=== PATIENT | male | born 1965 | race Caucasian/White ===

== ENCOUNTER 2023-02-22 17:57 | Inpatient (IN) ==
[2023-02-22] MEDS ORDERED: NovoLIN R (or HumuLIN R) SUBCUT PRN (20:00)
[2023-02-22 20:07] LABS: BASOPHILS # (AUTO) 0.1 X10^3/uL (0.0-0.1); BASOPHILS % (AUTO) 1.2 % (0.2-1.0); EOSINOPHILS % (AUTO) 0.4 % (0.9-2.9); HEMATOCRIT 44.2 % (42.0-54.0); HEMOGLOBIN 15.1 g/dL (13.5-18.0); LYMPHOCYTES # (AUTO) 1.9 X10^3/uL (1.3-2.9); LYMPHOCYTES % (AUTO) 20.4 % (21.0-51.0); MEAN CORPUSCULAR HEMOGLOBIN 28.8 pg (27.0-34.0); MEAN CORPUSCULAR HGB CONC 34.3 g/dL (33.0-35.0); MEAN PLATELET VOLUME 8.2 fL (7.4-11.0); MONOCYTES # (AUTO) 1.1 x10^3/uL (0.3-0.8); MONOCYTES % (AUTO) 11.3 % (0.0-13.0); NEUTROPHILS # (AUTO) 6.2 x10^3/uL (2.2-4.8); NEUTROPHILS % (AUTO) 66.7 % (42.0-75.0); PLATELET COUNT 216 X10^3/uL (150.0-450.0); RED BLOOD COUNT 5.26 X10^6/uL (4.7-6.0); RED CELL DISTRIBUTION WIDTH 13.2 % (11.6-16.5); WHITE BLOOD COUNT 9.4 X10^3/uL (3.6-10.0)
[2023-02-22 20:27] LABS: BLOOD UREA NITROGEN 21 mg/dL (7-18); CALCIUM 9.1 mg/dL (8.5-10.1); CARBON DIOXIDE 22.8 mmol/L (21-32); CHLORIDE 96 mmol/L (98-107); COR NA(FOR HYPERGLY) 133 mmol/L (136-145); CREATININE 0.86 mg/dL (0.70-1.30); GLUCOSE 119 mg/dL (65-99); POTASSIUM 4.1 mmol/L (3.5-5.1); SODIUM 133 mmol/L (136-145); eGFR NON BLACK RACES > 60 (>60)
[2023-02-22 20:39] LABS: ALANINE AMINOTRANSFERASE 29 Units/L (12-78); ALBUMIN 3.4 g/dL (3.4-5.0); ALKALINE PHOSPHATASE 85 Units/L (46-116); ASPARTATE AMINO TRANSFERASE 21 Units/L (15-37); TOTAL PROTEIN 7.2 g/dL (6.4-8.2)
[2023-02-22] MEDS: SNACK - Diabetic Appropriate PO SCH (21:00)
[2023-02-22 21:19] VITALS: BMI 33.9
[2023-02-22] MEDS: LR 1,000 ML IV 1,000 ML IV SCH (21:26)
[2023-02-22] MEDS: ASPIRIN PO SCH (21:55)
[2023-02-22] MEDS: LOPRESSOR TAB 25 MG PO SCH (21:55)
[2023-02-22] MEDS: ZOSYN VIAL 3.375 GRAMS 3.375 G in NS 100 ML IV 100 ML IV SCH (22:06)
[2023-02-23] MEDS: LR 1,000 ML IV 1,000 ML IV SCH ×4 (04:18→20:52)
[2023-02-23] MEDS: ZOSYN VIAL 3.375 GRAMS 3.375 G in NS 100 ML IV 100 ML IV SCH ×3 (05:28→21:06)
[2023-02-23 05:45] LABS: BLOOD UREA NITROGEN 18 mg/dL (7-18); CARBON DIOXIDE 27.5 mmol/L (21-32); CHLORIDE 100 mmol/L (98-107); COR NA(FOR HYPERGLY) 139 mmol/L (136-145); CREATININE 0.92 mg/dL (0.70-1.30); GLUCOSE 128 mg/dL (65-99); POTASSIUM 4.1 mmol/L (3.5-5.1); SODIUM 138 mmol/L (136-145); eGFR NON BLACK RACES > 60 (>60)
[2023-02-23 05:49] LABS: BASOPHILS # (AUTO) 0.1 X10^3/uL (0.0-0.1); BASOPHILS % (AUTO) 1.1 % (0.2-1.0); EOSINOPHILS # (AUTO) 0.2 x10^3/uL (0.0-0.2); EOSINOPHILS % (AUTO) 1.9 % (0.9-2.9); HEMATOCRIT 42.3 % (42.0-54.0); HEMOGLOBIN 14.8 g/dL (13.5-18.0); LYMPHOCYTES # (AUTO) 2.4 X10^3/uL (1.3-2.9); LYMPHOCYTES % (AUTO) 30.4 % (21.0-51.0); MEAN CORPUSCULAR HEMOGLOBIN 29.3 pg (27.0-34.0); MEAN CORPUSCULAR VOLUME 83.8 fL (80.0-100.0); MEAN PLATELET VOLUME 8.2 fL (7.4-11.0); MONOCYTES # (AUTO) 1.3 x10^3/uL (0.3-0.8); MONOCYTES % (AUTO) 16.4 % (0.0-13.0); NEUTROPHILS # (AUTO) 3.9 x10^3/uL (2.2-4.8); NEUTROPHILS % (AUTO) 50.2 % (42.0-75.0); PLATELET COUNT 200 X10^3/uL (150.0-450.0); RED BLOOD COUNT 5.05 X10^6/uL (4.7-6.0); RED CELL DISTRIBUTION WIDTH 13.2 % (11.6-16.5); WHITE BLOOD COUNT 7.8 X10^3/uL (3.6-10.0)
[2023-02-23 06:11] LABS: ALANINE AMINOTRANSFERASE 22 Units/L (12-78); ALKALINE PHOSPHATASE 79 Units/L (46-116); ASPARTATE AMINO TRANSFERASE 18 Units/L (15-37); COR CA(FOR HYPOALB) 9.8 mg/dL (8.5-10.1); TOTAL PROTEIN 6.7 g/dL (6.4-8.2)
--- NOTE | 2023-02-23 07:33 | NOTE.SOAP ---
Soap Note Note for Day of Date of Exam: 02/23/23 Subjective Data Subjective Data: 57 year old male seen at bedside with a chief complain of an infected 2nd digit on his right foot. Patient state that he had a callus there for quite some time and denies feeling any pain with his neuropathy. He mentioned that he got it wet and developped a small infection, then got it wet again. Patient states this is the first time this has happened and has been treating it conservatively. Unfortunately the infection got worse and was seen by Dr. Chaudhary who sent him to the emergency room for further workup, antibiotics and surgery. Patient denies any constitutional symptoms at this time including nausea, vomiting, fever, chills or sob. Objective Data Objective Data: Derm: Boggy 2nd toe noted to the left foot with an underlying wound at the tuft of the toe. Erythema around the digit and mild purulence. No other open wounds noted throughout both feet Vasc: Palpable DP 1/4 and PT 2/4 to bilteral feet. Edema noted to left foot Neuro: Gross epicritic and protective sensation is diminished Musc: Contracted digit to the left foot. Assessment Assessment: Gas Gangrene, Left foot Plan Plan: Patient seen at bedside. Discussed conservative vs surgical options for the patient and due to the nature of this infection it is recommended that the patient undergo surgery. Explained to patient that the toe will be amputated and the site will be left opened to drain any additional infection. Patient will be taken back to the operating room when the infection improves. Patient will be kept on IV antibiotics throughout his stay in the hospital. Patient confirmed NPO status since 10pm last night. We will be taking him to the operating room today for an open toe amputation to the left foot. Arterial studies ordered
[2023-02-23] MEDS ORDERED: NS 1,000 ML IV 1,000 ML ONE (08:42)
[2023-02-23] MEDS ORDERED: NS 100 ML IV 100 ML ONE (08:42)
[2023-02-23] MEDS ORDERED: ANCEF VIAL 1 GRAM ONE (08:42)
--- NOTE | 2023-02-23 08:56 | EKG ---
Test Reason : pre-op Blood Pressure : */* mmHG Vent. Rate : 77 BPM Atrial Rate : 77 BPM P-R Int : 166 ms QRS Dur : 82 ms QT Int : 366 ms P-R-T Axes : * 174 211 degrees QTc Int : 414 ms Suspect arm lead reversal, interpretation assumes no reversal Normal sinus rhythm Low voltage QRS Anterolateral infarct , age undetermined Abnormal ECG No previous ECGs available Confirmed by Marquis Malin ([id number]) on 02/23/2023 11:13:39 AM Referred By: Confirmed By: Marquis Malin
[2023-02-23] MEDS ORDERED: MARCAINE 0.25% INJ ONE (09:14)
--- NOTE | 2023-02-23 09:19 | RAD ---
HISTORYPRE OP TOE AMPUTATION Relevant Clinical InformationSTUDYCHEST, 1 VIEWCOMPARISONNone availableFINDINGSThe trachea is midline. Mild cardiomegaly. Status post sternotomy. No dominant alveolar radiopacities.There is poor inspiratory effort with elevation of the diaphragm,no evidence of pneumothorax or pleural effusions,no pulmonary edema. Mild radiopacities at the bases probably atelectasis.IMPRESSIONForty inspiratory effort with elevation of the diaphragm. Mild atelectasis at the bases.Electronically signed by: Wanda Delgado (Feb 23, 2023 09:18:12)
[2023-02-23] MEDS ORDERED: FENTANYL VIAL INJ 100 mcg ONE (09:52)
[2023-02-23] MEDS ORDERED: VERSED ONE (09:52)
[2023-02-23] MEDS ORDERED: PEPCID 20 MG VIAL ONE (09:56)
[2023-02-23] MEDS ORDERED: OFIRMEV IV 1000 MG VIAL 1,000 MG/100 ML VIAL IV ONE (09:56)
[2023-02-23] MEDS ORDERED: ZOFRAN INJ 4 MG VIAL ONE (09:56)
[2023-02-23] MEDS ORDERED: BETADINE SOLN ONE (10:05)
[2023-02-23] MEDS ORDERED: XYLOCAINE 2 % (PLAIN) ONE (10:18)
--- NOTE | 2023-02-23 10:18 | DR.OPNOTE ---
OP NOTE Pre-Op Diagnosis: Gas Gangrene, Left foot Post-Op Diagnosis: Gas gangrene, left foot Procedure Date Date Of Procedure: 02/23/23 Procedure: Open 2nd digit amputation Anesthesia Comment: MAC with local block Findings: See dictation Specimen/Pathology: 2nd toe sent for pathology and cultures for micro EBL: 10cc Drains/Tubes Placed: None Hardware: None Cultures: x2 from left foot Complications:: None Needle/Sponge Count:: Counted Disposition/Condition: Pt. tolerated procedure without difficulty. Extubated in the OR and taken to PACU in stable condition.
[2023-02-23] MEDS: LOPRESSOR TAB 25 MG PO SCH ×2 (10:47→20:51)
[2023-02-23] MEDS: GLUCOPHAGE PO SCH ×2 (10:48→17:14)
[2023-02-23] MEDS: ZESTRIL TAB 5 MG PO SCH (10:48)
[2023-02-23] MEDS: LIPITOR TAB 80 MG PO SCH (10:48)
[2023-02-23] MEDS: FARXIGA PO SCH (10:48)
--- NOTE | 2023-02-23 16:24 | VAS ---
HISTORYPAD, S/P TOE AMPUTATION LEFT FOOT THIS AMSTUDYLOWER EXT ARTERIALCOMPARISONNoneTECHNIQUEMultiple white scale and color flow Doppler images of the [right and left] lower extremity arterial system were obtained. Interrogation of the common femoral artery, superficial femoral artery, popliteal artery, and tibial arteries was performed.FINDINGSOn the right biphasic waveforms were seen the from the common femoral artery to the anterior tibial artery with peak systolic velocities ranging from 50 cm/s to 101 cm/second.On the left no flow was seen in the common femoral artery or the proximal superficial femoral artery with monophasic waveforms seen in the mid/distal SFA through anterior tibial artery. Peak systolic velocities ranged from 32 cm/second to 182 cm/second. The left foot was not examined due to external dressings.IMPRESSIONAbnormal bilateral arterial waveforms with no flow seen in the proximal left lower extremity. CT angiogram or conventional angiogram may be helpful.Electronically signed by: Luis Angel Welch (Feb 23, 2023 16:13:30)
[2023-02-23] MEDS: SNACK - Diabetic Appropriate PO SCH (20:51)
[2023-02-23] MEDS: ASPIRIN PO SCH (20:51)
[2023-02-23] MEDS ORDERED: LANTUS SC SCH (21:00)
[2023-02-24] MEDS: LR 1,000 ML IV 1,000 ML IV SCH (05:18)
[2023-02-24 05:22] LABS: ALANINE AMINOTRANSFERASE 18 Units/L (12-78); ALBUMIN 2.6 g/dL (3.4-5.0); ALKALINE PHOSPHATASE 81 Units/L (46-116); ASPARTATE AMINO TRANSFERASE 22 Units/L (15-37); BLOOD UREA NITROGEN 14 mg/dL (7-18); CALCIUM 8.2 mg/dL (8.5-10.1); CARBON DIOXIDE 26.6 mmol/L (21-32); CHLORIDE 98 mmol/L (98-107); COR CA(FOR HYPOALB) 9.3 mg/dL (8.5-10.1); COR NA(FOR HYPERGLY) 133 mmol/L (136-145); CREATININE 0.82 mg/dL (0.70-1.30); GLUCOSE 158 mg/dL (65-99); SODIUM 132 mmol/L (136-145); TOTAL PROTEIN 6.2 g/dL (6.4-8.2); eGFR NON BLACK RACES > 60 (>60)
[2023-02-24 05:47] LABS: BASOPHILS # (AUTO) 0.1 X10^3/uL (0.0-0.1); EOSINOPHILS # (AUTO) 0.2 x10^3/uL (0.0-0.2); EOSINOPHILS % (AUTO) 2.6 % (0.9-2.9); HEMATOCRIT 40.9 % (42.0-54.0); HEMOGLOBIN 14.1 g/dL (13.5-18.0); LYMPHOCYTES # (AUTO) 2.1 X10^3/uL (1.3-2.9); LYMPHOCYTES % (AUTO) 22.8 % (21.0-51.0); MEAN CORPUSCULAR HGB CONC 34.5 g/dL (33.0-35.0); MEAN CORPUSCULAR VOLUME 83.9 fL (80.0-100.0); MEAN PLATELET VOLUME 7.9 fL (7.4-11.0); MONOCYTES # (AUTO) 1.2 x10^3/uL (0.3-0.8); MONOCYTES % (AUTO) 12.6 % (0.0-13.0); NEUTROPHILS # (AUTO) 5.6 x10^3/uL (2.2-4.8); PLATELET COUNT 188 X10^3/uL (150.0-450.0); RED BLOOD COUNT 4.87 X10^6/uL (4.7-6.0); RED CELL DISTRIBUTION WIDTH 13.2 % (11.6-16.5); WHITE BLOOD COUNT 9.1 X10^3/uL (3.6-10.0)
[2023-02-24] MEDS: ZOSYN VIAL 3.375 GRAMS 3.375 G in NS 100 ML IV 100 ML IV SCH ×3 (06:03→21:19)
[2023-02-24] MEDS: GLUCOPHAGE PO SCH ×2 (06:04→17:58)
--- NOTE | 2023-02-24 07:50 | NOTE.SOAP ---
Soap Note Note for Day of Date of Exam: 02/24/23 Subjective Data Subjective Data: Patient AAOx3 this morning, no acute symptoms overnight Objective Data Objective Data: Open toe amputation site with mild sanguinous drainage as expected post operatively. Edema and erythema has resolved. No malodor, purulence or erythema appreciated Assessment Assessment: Gas gangrene, Left foot S/P open 2nd digit amputation Plan Plan: Patient doing well this morning, explained plan at length with him and his . We will be monitoring daily and likely be taking the patient back to the operating room tomorrow for a delayed primary closure. Continue IV abx. Arterial ultrasound reviewed. Patient to be PWB with heel touch to the LLE in a post op shoe. NPO after midnight
[2023-02-24] MEDS ORDERED: OMNIPAQUE 350 mg/mL 100 mL BTL 100 ML ONE (08:42)
[2023-02-24] MEDS ORDERED: NS 100 ML IV 100 ML ONE ×2 (08:42→13:19)
[2023-02-24] MEDS ORDERED: OMNIPAQUE 350 mg/mL 50 mL BTL 50 ML ONE (08:42)
[2023-02-24] MEDS: FARXIGA PO SCH (08:43)
[2023-02-24] MEDS: LIPITOR TAB 80 MG PO SCH (08:43)
[2023-02-24] MEDS: ZESTRIL TAB 5 MG PO SCH (08:44)
[2023-02-24] MEDS: LOPRESSOR TAB 25 MG PO SCH ×2 (08:44→21:18)
--- NOTE | 2023-02-24 10:45 | CT ---
HISTORYevaluate for PAD, irregular doppler. Possible arterial occlusion.STUDYLOW EXT CTA W W/O CONCOMPARISONLower extremity arterial ultrasound 02/23/2023TECHNIQUEMultiple axial images of the abdomen, pelvis, and lower extremity runoff were obtained without IV contrast. Coronal and sagittal reformats were made and reviewed. Dose reduction techniques included Automated Exposure Control (AEC) and adjustment of mA and kV.FINDINGSWithout contrast: Atherosclerotic calcification is present in the coronary arteries.Vascular calcifications are present compatible with atherosclerosis.With contrast: Aorta has a normal caliber with no aneurysm, dissection, or stenosis.All 3 mesenteric vessels are patent. There is a single patent artery to each kidney. Common iliac and external iliac arteries are widely patent. Both internal iliac arteries are patent.Left lower extremity: Common femoral artery is patent. But there is a long occlusion of the femoropopliteal artery starting at the origin of the superficial femoral artery. Deep femoral artery collaterals reconstitute the popliteal artery above the knee joint surface. Popliteal artery is patent and gives rise to all 3 branches of the trifurcation vessels in the proximal calf. Dominant vessel is the posterior tibial artery. But all 3 branches extend to the foot. Peroneal artery is very small at the ankle.Right lower extremity: Common femoral artery is patent. Mild diffuse femoropopliteal artery disease is present without focal stenosis. All 3 branches are patent in the proximal calf and extend to the foot. The dominant vessel is posterior tibial artery. Peroneal artery is very tiny at the ankle.Body: No pulmonary emboli in the lower lobes. No biliary obstruction. No hydronephrosis. No bowel obstruction. No inflammation or free fluid.IMPRESSION1. Long occlusion of the left femoropopliteal artery2. Three-vessel runoff to each footElectronically signed by: Bronson Wood (Feb 24, 2023 10:43:39)
[2023-02-24] MEDS: NS 1,000 ML IV 1,000 ML IV SCH ×2 (11:52→17:59)
[2023-02-24] MEDS ORDERED: REGLAN INJ 10 MG VIAL ONE ×2 (13:09→13:26)
[2023-02-24] MEDS ORDERED: ROBINUL ONE ×2 (13:09→13:48)
[2023-02-24] MEDS ORDERED: PEPCID 20 MG VIAL ONE ×2 (13:09→13:33)
[2023-02-24] MEDS ORDERED: ZEMURON 100 MG VIAL ONE (13:09)
[2023-02-24] MEDS ORDERED: ZOFRAN INJ 4 MG VIAL ONE (13:09)
[2023-02-24] MEDS ORDERED: BRIDION ONE (13:09)
[2023-02-24] MEDS ORDERED: DIPRIVAN VIAL 20 ML ONE (13:10)
[2023-02-24] MEDS ORDERED: ANCEF VIAL 1 GRAM ONE (13:18)
[2023-02-24] MEDS ORDERED: LR 1,000 ML IV 1,000 ML IV ONE (13:19)
[2023-02-24] MEDS ORDERED: HEPARIN SODIUM IN D5W 75,000 UNITS/1,500 ML BAG ONE (13:22)
[2023-02-24] MEDS ORDERED: MARCAINE/EPINEPHRINE ONE (13:22)
[2023-02-24] MEDS ORDERED: VERSED ONE (13:32)
[2023-02-24] MEDS ORDERED: FENTANYL VIAL INJ 250 mcg ONE (13:32)
[2023-02-24] MEDS ORDERED: OFIRMEV IV 1000 MG VIAL 1,000 MG/100 ML VIAL IV ONE (13:33)
[2023-02-24] MEDS ORDERED: ULTANE GAS IN ONE (13:43)
[2023-02-24] MEDS ORDERED: DECADRON INJ ONE (13:43)
[2023-02-24] MEDS ORDERED: AMIDATE INJ 40 MG VIAL ONE (13:43)
[2023-02-24] MEDS ORDERED: XYLOCAINE 2 % (PLAIN) ONE (13:43)
[2023-02-24] MEDS ORDERED: LACRI-LUBE S.O.P. ONE (14:09)
[2023-02-24] MEDS ORDERED: VISIPAQUE 100 ML ONE (14:12)
[2023-02-24] MEDS ORDERED: HEPARIN SODIUM INJ 5000 UNITS ONE ×2 (14:13→15:14)
[2023-02-24] MEDS ORDERED: EPHEDRINE SULFATE INJ ONE (14:19)
[2023-02-24] MEDS ORDERED: NS 1,000 ML IV 1,000 ML ONE ×2 (14:56→15:18)
[2023-02-24] MEDS ORDERED: BARHEMSYS INJ IVP PRN (16:13)
[2023-02-24] MEDS ORDERED: DILAUDID INJ IVP PRN (16:13)
[2023-02-24] MEDS ORDERED: REGLAN INJ 10 MG VIAL IVP PRN (16:13)
[2023-02-24] MEDS ORDERED: ZOFRAN INJ 4 MG VIAL IVP PRN (16:13)
[2023-02-24] MEDS ORDERED: BENADRYL INJ 50 MG VIAL IVP PRN (16:13)
--- NOTE | 2023-02-24 16:18 | OR.IMMED ---
IMMEDIATE POST-OP NOTE Immediate Post-Op Note Pre-Op Diagnosis: Critical ischemia left leg, completely occluded left superfici al femoral artery ,gas gangrene left foot Post-Op Diagnosis: same Procedure: diagnostic aortogram, diagnostic arteriogram left leg, atherectomy and drug-coated stenting of the distal left superficial femoral artery, atherectomy and drug-coated balloon angioplasty of the proximal left superficial femoral artery Surgeon/Band Director: Charlette Findings: Completely occluded left superficial femoral artery beginning at its take-off and extending to the popliteal artery Estimated Blood Loss: 400 cc's Complications: none Post Hospital Plans and Medications: return the floor. Continue IV antibiotics. Plan is for closure open wound left foot tomorrow
[2023-02-24] MEDS: ASPIRIN PO SCH (21:18)
[2023-02-24] MEDS: SNACK - Diabetic Appropriate PO SCH (21:18)
[2023-02-25] MEDS: NS 1,000 ML IV 1,000 ML IV SCH ×2 (02:35→10:00)
[2023-02-25 05:03] LABS: BASOPHILS # (AUTO) 0.1 X10^3/uL (0.0-0.1); BASOPHILS % (AUTO) 0.9 % (0.2-1.0); EOSINOPHILS % (AUTO) 0.4 % (0.9-2.9); HEMATOCRIT 40.2 % (42.0-54.0); LYMPHOCYTES # (AUTO) 1.9 X10^3/uL (1.3-2.9); LYMPHOCYTES % (AUTO) 22.9 % (21.0-51.0); MEAN CORPUSCULAR HEMOGLOBIN 29.1 pg (27.0-34.0); MEAN CORPUSCULAR HGB CONC 34.8 g/dL (33.0-35.0); MEAN CORPUSCULAR VOLUME 83.6 fL (80.0-100.0); MEAN PLATELET VOLUME 8.5 fL (7.4-11.0); MONOCYTES # (AUTO) 0.9 x10^3/uL (0.3-0.8); MONOCYTES % (AUTO) 10.4 % (0.0-13.0); NEUTROPHILS # (AUTO) 5.4 x10^3/uL (2.2-4.8); NEUTROPHILS % (AUTO) 65.4 % (42.0-75.0); PLATELET COUNT 218 X10^3/uL (150.0-450.0); RED BLOOD COUNT 4.81 X10^6/uL (4.7-6.0); RED CELL DISTRIBUTION WIDTH 13.1 % (11.6-16.5); WHITE BLOOD COUNT 8.2 X10^3/uL (3.6-10.0)
[2023-02-25 05:28] LABS: ALANINE AMINOTRANSFERASE 17 Units/L (12-78); ALBUMIN 2.7 g/dL (3.4-5.0); ALKALINE PHOSPHATASE 75 Units/L (46-116); ASPARTATE AMINO TRANSFERASE 20 Units/L (15-37); BLOOD UREA NITROGEN 14 mg/dL (7-18); CALCIUM 8.3 mg/dL (8.5-10.1); CARBON DIOXIDE 26.3 mmol/L (21-32); CHLORIDE 100 mmol/L (98-107); COR CA(FOR HYPOALB) 9.3 mg/dL (8.5-10.1); COR NA(FOR HYPERGLY) 136 mmol/L (136-145); CREATININE 0.89 mg/dL (0.70-1.30); GLUCOSE 143 mg/dL (65-99); POTASSIUM 4.2 mmol/L (3.5-5.1); SODIUM 135 mmol/L (136-145); TOTAL PROTEIN 6.4 g/dL (6.4-8.2); eGFR NON BLACK RACES > 60 (>60)
[2023-02-25] MEDS: GLUCOPHAGE PO SCH (06:19)
[2023-02-25] MEDS: ZOSYN VIAL 3.375 GRAMS 3.375 G in NS 100 ML IV 100 ML IV SCH (06:19)
[2023-02-25] MEDS ORDERED: FENTANYL VIAL INJ 100 mcg ONE (09:46)
[2023-02-25] MEDS ORDERED: VERSED ONE (09:46)
[2023-02-25] MEDS ORDERED: DIPRIVAN VIAL 20 ML ONE (09:47)
[2023-02-25] MEDS ORDERED: BETADINE SURGICAL SCRUB ONE (09:49)
[2023-02-25] MEDS ORDERED: MARCAINE 0.25% INJ ONE (09:49)
[2023-02-25] MEDS ORDERED: NS 1,000 ML IV 1,000 ML ONE (10:12)
--- NOTE | 2023-02-25 11:12 | NOTE.SOAP ---
Soap Note Note for Day of Date of Exam: 02/25/23 Subjective Data Subjective Data: Patient admitted with gas gangrene of the left foot and is status post incision and drainage. He had no probable arterial flow of the left leg and CT angiogram was consistent with completely occluded left superficial femoral artery. He underwent atherectomy, drug-coated balloon angioplasty and drug-coated stenting of the right super superficial femoral artery yesterday. He is doing well. He is planned for closure of the fleft oot wound today by the Podiatry service. Cultures are growing Pseudomonas which is sensitive to Cipro and stapylococcal aureus which is methicillin-sensitive. Objective Data Temperature: 9.2 F Pulse Rate: 68 Respiratory Rate: 18 Blood Pressure: 149/85 O2 Sat by Pulse Oximetry: 95 Objective Data: Warm left foot. Excellent doppler signal at the posterior tibial and dorsalis pedis locations. Assessment Assessment: For closure of the left foot wound today by Podiatry. They will determine when he is discharged, and what antibiotics he will be discharged on Plan Plan: follow up me in one week. Recommended daily aspirin 81 mg
[2023-02-25] MEDS: LIPITOR TAB 80 MG PO SCH (11:37)
[2023-02-25] MEDS: ZESTRIL TAB 5 MG PO SCH (11:37)
[2023-02-25] MEDS: FARXIGA PO SCH (11:37)
[2023-02-25] MEDS: LOPRESSOR TAB 25 MG PO SCH (11:37)
[2023-02-25 12:08] VITALS: TEMP 97.9
--- NOTE | 2023-02-25 12:49 | DR.OPNOTE ---
OP NOTE Pre-Op Diagnosis: Cellulitis, Left foot Post-Op Diagnosis: Cellulitis, left foot Procedure Date Date Of Procedure: 02/25/23 Procedure: Repeat washout with delayed primary closure, left foot Anesthesia Comment: MAC with local block Findings: Optimal bleeding, no purulence/drainage/erythema Specimen/Pathology: None EBL: 5cc Drains/Tubes Placed: None Hardware: None Cultures: 2x from left foot Complications:: None Needle/Sponge Count:: Counted Disposition/Condition: Pt. tolerated procedure without difficulty. Extubated in the OR and taken to PACU in stable condition. Patient is okay for discharge from a Podiatry standpoint. Please dispense scripts that are in the chart (blood thinner and antibiotics). Patient is to be partial wb on the left foot in a surgical shoe. Patient is to follow up in office next week with Dr. Barnhart and Dr. Carbajal (Vascular)
[2023-02-25 13:11] VITALS: BP 138/82; PULSE 67; RESP 24; O2SAT 96
--- NOTE | 2023-02-25 19:56 | DR.CONSULT ---
CONSULT Consultation for Day of: Date: 02/24/23 Chief Complaint Chief Complaint: Wound of the left leg with rest pain . Allergies Allergies Allergy/AdvReac Type Severity Reaction Status Date / Time No Known Drug Allergies Allergy Verified 02/22/23 20:12 [NKDA] History of Present Illness History of Present Illness: This patient is a 57 year old male who presented with gas gangrene of the left foot and was seen by Dr. Chaudhary who performed incision and drainage of the left foot. The patient that evidence of poor arterial flow of the left leg by Doppler study and CT angiogram was obtained showing complete total occlusion of the entire left superficial femoral artery with patent vessels below this with three vessel runoff. Past medical history includes diabetes , hypertension and coronary artery disease. History of CABG 2017 s/p [place]. Denies any further chest pain or shortness of breath. Past Medical History Past Medical History: Coronary Artery Disease, Diabetes and Hypertension Past Surgical History Surgical History: CABG/Valve Surgery (CABG 2016) and Thyroidectomy Family History Family Medical History: Cancer and SC Social History Does patient currently use any type of tobacco product: No Have you used tobacco products in the last 12 months: No Type of Tobacco Use: None Medications Home Medications: No Known Drug Allergies [NKDA] Allergy (Verified 02/22/23 20:12) CONTINUE taking the following medications aspirin 325 mg tablet 325 mg PO QPM 02/22/23 [History] atorvastatin 80 mg tablet 80 mg PO QDAY 02/22/23 [History] dapagliflozin propanediol 10 mg tablet (Farxiga) 10 mg PO QDAY 02/22/23 [History] ibuprofen 200 mg tablet (Advil) 600 mg PO Q6H PRN 02/22/23 [History] insulin glargine 100 unit/mL (3 mL) subcutaneous pen (Basaglar KwikPen U-100 Insulin) 42 unit subcut QPM 02/22/23 [History] lisinopril 5 mg tablet 5 mg PO QDAY 02/22/23 [History] metformin 850 mg tablet 850 mg PO BID 02/22/23 [History] metoprolol tartrate 25 mg tablet 12.5 mg PO BID 02/22/23 [History] Review of Systems Constitutional: See HPI Eyes: No Symptoms Reported ENT: No Symptoms Reported Respiratory: No Symptoms Reported Cardiovascular: No Symptoms Reported Gastrointestinal: No Symptoms Reported Genitourinary: No Symptoms Reported Musculoskeletal: See HPI Skin: See HPI Neurological: No Symptoms Reported Physical Exam Vital Signs: Vital Signs Pulse Rate [Brachial] 72 Pulse Rate 67 Pulse Rate 72 Pulse Rate 78 Pulse Rate 62 Pulse Rate 63 Pulse Rate 72 Respiratory Rate 24 Respiratory Rate 27 Respiratory Rate 28 Respiratory Rate 23 Respiratory Rate 8 Respiratory Rate 23 Respiratory Rate 20 Blood Pressure [Left Arm] 132/75 Blood Pressure 138/82 Blood Pressure 140/80 Blood Pressure 127/72 Blood Pressure 130/78 Blood Pressure 133/81 O2 Sat by Pulse Oximetry 96 O2 Sat by Pulse Oximetry 97 O2 Sat by Pulse Oximetry 98 O2 Sat by Pulse Oximetry 97 O2 Sat by Pulse Oximetry 97 O2 Sat by Pulse Oximetry 97 O2 Sat by Pulse Oximetry 95 Oriented: Normal, Time, Person and Place Eyes: Normal Ear: Normal Nose: Normal Throat: Normal Respiratory: Clear Throughout Cardiovascular: Normal : Normal Auscultation: Bowel Sounds: Normal Palpation: Normal Tenderness: Normal Skin: Other (Open wound left with after incision and drainage by Dr. Chaudhary) Musculoskeletal: Normal Psychiatric: Normal Mood Description: Calm Affect: Normal Speech Pattern: Clear Plan (1) Atherosclerosis of [place] arteries of extremities with rest pain, left leg: Status: Acute Plan: Podiatry planning closing the wound. Would recommend arterial intervention of the complete occlusion of the left superficial femoral artery before that takes place. Will plan on table arteriogram left leg with probable atherectomy ,drug-coated balloon angioplasty vs. stenting of the left superficial femoral artery. Will be done RUDDY (2) Diabetes: Status: Acute (3) Gas gangrene of lower extremity: Status: Acute Plan: per Dr. Chaudhary (4) History of CAD (coronary artery disease): Status: Acute
--- NOTE | 2023-02-25 20:48 | DR.OPNOTE ---
OP NOTE Pre-Op Diagnosis: critical ischemia left leg with gas gangrene of left foot Post-Op Diagnosis: same Procedure Date Date Of Procedure: 02/24/23 Procedure: PROCEDURE: Diagnostic aortogram , diagnostic arteriogram left lower extremity ,atherectomy and drug-coated balloon angioplasty of proximal let superficial femoral artery , atherectomy and drug coated stenting left distal superficial femoral artery NARRATIVE: The patient was taken to the operative suite and placed in the supine position. The right groin and entire left leg were prepped and draped in sterile fashion. The patient was given intravenous sedation supervised by myself. Time out for the procedure obtained . Ultrasound used to identify the right femoral artery and the skin overlying it infiltrated with 0.5% Marcaine. Ultrasound used to guide puncture of the right femoral artery and a 0.012 inch guide wire placed. Incision made over the guide wire at the skin edge with a # 11 knife blade and a micro sheath placed over the guide wire into the right f emoral artery. The small wire exchanged for a 0.035 inch Advantage glide wire and the micro sheath exchanged for a 5- Fr vascular sheath . Omni catheter was placed over the guide wire into the aorta and power injector used to reform diagnostic aortogram showing normal aorta and iliac arteries . Patient given 5000 units of IV heparin . The Omni catheter used to steer the guide wire down the left common iliac artery down to the left external iliac artery and the Omni catheter exchanged for a [place] catheter. Using the [place] catheter and the guidewire sequential arteriograms performed of the left leg showing complete total occlusion of the left superficial femoral artery beginning at its takeoff from the common femoral artery with reconstitution of the distal left superficial femoral artery, normal popliteal artery and normal 3 vessel run off to the left foot . The five [place] sheath in the left groin exchanged for a 7 Fr destination sheath which was parked in the left common femoral artery. Attempts were made to pass wire down the takeoff of the left superficial femoral artery but was unsuccessful. Since a wire would not pass the occlusion from above we elected to perform a retrograde approach as well. Ultrasound used to identify the left posterior tibial artery at the ankle , and the skin overlying it infiltrated with 0.5% Marcaine . Ultrasound use to guide puncture of the left posterior tibial artery and a 0.012 inch guide wire placed. A slim sheath 4 Fr catheter placed over the guide wire into the left posterior tibial artery and arteriogram carried out to confirm that we were indeed in the posterior tibial artery . From below a guide wire and [place] catheter were used to traverse the obstruction all the way to the proximal left common femoral artery. The guide wire was captured from above with a snare through the 7 Fr destination sheath and out the opening of it in the right groin sheath . [place] catheter placed from above over the 0.035 inch wire from right to left down to the distal posterior tibial artery . Patient given an additional 3000 units of intravenous heparin. This was selective catheterization .The 0.035 inch Advantage glide wire exchanged through the [place] catheter for 0.014 inch wire. Over the 0.014 inch wire we placed the Jet Stream atherectomy device and performed atherectomy of the entire left superficial femoral artery . Once this was complete the Jet stream device was removed and over the wire we placed an Zee drug coated stent measuring 6 mm x 150 mm in the distal left superficial femoral artery extending into normal artery and then proximal to this stent we placed a 6mm x 80 mm Zee stent .The delivery device for the stent removed. Over the wire we placed a 6 mm by 200 mm [employer] [place] drug-coated balloon proximal to the previously placed stents and balloon dilated it for 3 minutes. This removed and then an additional 6 mm by 60 mm drug-coated [employer] [place] balloon place proximal to this and is inflated for 3 minutes to cover the entire left superficial femoral artery. The 6 mm by 200 mm [place] balloon was the used to post dilate both of the stents in the distal left superficial femoral artery. Post-procedure arteriogram showed excellent results. Wires and devices devices removed from the destination sheath. The destination sheath pulled back into the aorta and a 0.035 inch wire placed . The destination sheath exchanged for an Angioseal device used to close the puncture of the right femoral artery .Hemostatic dressing placed over the right groin puncture site and tibial band inflated over the puncture of the left posterior tibial artery at the ankle and the patient extubated and taken to the PACU in good condition and then back to the ICU . Type of Anesthesia: General Anesthetic w/ETT Findings: Complete total occlusion of entire left superficial femoral artery and reconstitution of left popliteal artery with 3 vessel runoff left leg. Type of Fluids Used:: Lactated Ringers Total Amount of Fluid Infused:: 1200 cc Urine output: 400 cc EBL: 400 cc Hardware: 6 mm x 150 mm Zee stent left SFA, 6 mmx 80 mm Zee stent, both placed in the distal and mid left SFA Complications:: none Needle/Sponge Count:: correct Disposition/Condition: Pt. tolerated procedure without difficulty. Extubated in the OR and taken to ICU in stable condition.
== END 2023-02-25 13:30 | disposition home or self-care (01) | DRG 854 ==
LOC: ICU 18:07
PROVIDERS: ADMIT Obstetrics & Gynecology Obstetrics; ATTEND Obstetrics & Gynecology Obstetrics
DX: I70.222 Atherosclerosis of native arteries of extremities with rest pain, left leg; Z86.79 Personal history of other diseases of the circulatory system; E11.65 Type 2 diabetes mellitus with hyperglycemia; B96.5 Pseudomonas (aeruginosa) (mallei) (pseudomallei) as the cause of diseases classified elsewhere; B96.89 Other specified bacterial agents as the cause of diseases classified elsewhere; I25.10 Atherosclerotic heart disease of native coronary artery without angina pectoris; A48.0 Gas gangrene; E11.52 Type 2 diabetes mellitus with diabetic peripheral angiopathy with gangrene; I10 Essential (primary) hypertension; B95.61 Methicillin susceptible Staphylococcus aureus infection as the cause of diseases classified elsewhere